=== PATIENT | female | born 1930 | race Caucasian/White ===

== ENCOUNTER 2017-09-23 08:39 | Observation (INO) | payer MEDICARE ==
[~2017-09-23] VITALS: Ht 165.1 cm; Wt 46.7 kg
[~2017-09-23 08:39] MED LIST: AMLO5TAB2 PO; ASPI-621 PO; CEFD300C37 PO; CIPR500T87 PO; DOXY100T PO; GABA300C10 PO; HYDR-3240 PO; HYDR12.53 PO; LEVE500T53 PO; LISI-167 PO; MELO7.5T31 PO; METOPROLOL; PROZAC PO; TRIA1CAP3 PO; ZONI50CA2 PO
[2017-09-23] MEDS ORDERED: VANCOMYCIN PMX 1GM/200ML 200 ML IVPB SCH (10:30)
[2017-09-23 10:33] VITALS: BP 145/78
[2017-09-23] MEDS ORDERED: HYDR-3307 PO (10:50)
[2017-09-23] MEDS ORDERED: AMLO10TA4 PO (10:50)
[2017-09-23] MEDS ORDERED: PLEASE ENTER HEIGHT AND WEIGHT MC SCH (11:00)
[2017-09-23 11:33] LABS: HEMATOCRIT 42.6 % (34.6-47.8); HEMOGLOBIN 14.4 g/dL (11.7-16.4); WHITE BLOOD COUNT 5.9 x10^3/uL (3.4-10)
[2017-09-23 11:36] LABS: BLOOD UREA NITROGEN 10 mg/dL (7-18)
[2017-09-23 11:40] LABS: ASPARTATE AMINO TRANSFERASE 27 U/L (15-37)
[2017-09-23] MEDS ORDERED: CEFAZOLIN PMX 1GM/50ML 50 ML ONE (12:51)
[2017-09-23] MEDS ORDERED: FENTANYL PF 100 MCG/2ML ONE (12:51)
[2017-09-23] MEDS ORDERED: LIDOCAINE 2%, 20ML ONE (12:51)
[2017-09-23] MEDS ORDERED: MIDAZOLAM 1 MG/ML, 5ML ONE (12:51)
[2017-09-23] MEDS ORDERED: CEFAZOLIN 1,000 MG ONE (12:52)
[2017-09-23] MEDS ORDERED: ZOLPIDEM 5MG TABLET PO PRN (14:00)
[2017-09-23 14:20] VITALS: BP 106/68
[2017-09-23] MEDS: SODIUM CHLORIDE 0.9% 1,000 ML IV SCH ×2 (14:39→18:21)
[2017-09-23] MEDS: HYDROcodone/APAP 5/325 TABLET PO PRN (17:13)
[2017-09-23 19:50] VITALS: BP 118/63
[2017-09-23] MEDS: ZONISAMIDE 50 MG CAPSULE PO SCH (20:56)
[2017-09-23] MEDS: CEFAZOLIN PMX 1GM/50ML 50 ML IVPB SCH (20:56)
[2017-09-23] MEDS: SODIUM CHLORIDE FLUSH 10ML SYR IVF SCH (20:56)
[2017-09-24 01:56] VITALS: BP 138/69
[2017-09-24] MEDS: SODIUM CHLORIDE 0.9% 1,000 ML IV SCH ×2 (02:10→10:20)
[2017-09-24] MEDS: HYDROcodone/APAP 5/325 TABLET PO PRN ×2 (03:20→09:25)
[2017-09-24] MEDS: CEFAZOLIN PMX 1GM/50ML 50 ML IVPB SCH ×2 (05:07→13:40)
[2017-09-24 07:21] VITALS: BP 121/63
[2017-09-24] MEDS ORDERED: LISINOPRIL 10 MG TABLET PO SCH (09:00)
[2017-09-24] MEDS ORDERED: HYDROCHLOROTHIAZIDE 12.5 MG CAPSULE PO SCH (09:00)
[2017-09-24] MEDS ORDERED: METOPROLOL TARTRATE 25 MG TABLET PO SCH (09:00)
[2017-09-24] MEDS ORDERED: AMLODIPINE 5 MG TABLET PO SCH (09:00)
[2017-09-24] MEDS: ZONISAMIDE 50 MG CAPSULE PO SCH (09:18)
[2017-09-24] MEDS: SODIUM CHLORIDE FLUSH 10ML SYR IVF SCH (09:19)
[2017-09-24 14:34] VITALS: BP 118/67
== END 2017-09-24 15:24 | disposition home or self-care (01) ==
LOC: CACL 08:39 → ORIP 13:54 → 5SO 14:27
PROVIDERS: ADMIT Internal Medicine Cardiovascular Disease; ATTEND Internal Medicine Cardiovascular Disease
DX: I44.2 Atrioventricular block, complete (principal); I46.9 Cardiac arrest, cause unspecified; R55 Syncope and collapse; I48.0 Paroxysmal atrial fibrillation; I49.3 Ventricular premature depolarization; I10 Essential (primary) hypertension; I36.8 Other nonrheumatic tricuspid valve disorders
CPT/HCPCS: 33208; 36415; 71010; 80053; 85025; 85610; 93005; 96365; 96375; 99156; 99157; C1779; C1785; C1892; G0378; J0690; J2250; J3010; J3490